=== PATIENT | male | born 1955 | race Caucasian/White ===

== ENCOUNTER 2022-03-18 15:36 | Emergency (ER) | payer OTHER ==
[2022-03-18 16:02] VITALS: BP 118/62; PULSE 84; RESP 20; TEMP 98; BMI 28.2
== END 2022-03-18 16:44 | disposition home or self-care (01) ==
LOC: FER 15:36
DX: L02.414 Cutaneous abscess of left upper limb (principal)
CPT/HCPCS: 99283-25